=== PATIENT | male | born 1955 | race Caucasian/White ===

== ENCOUNTER 2020-04-03 06:44 | Outpatient (CLI) | payer MEDICARE, BC, OTHER ==
[2020-04-03 14:38] LABS: INR-International Normal Ratio 0.9; Prothrombin Time 12.4 sec (12.0-14.7)
[2020-04-03 14:48] LABS: Hemoglobin 15.4 g/dL (14.0-18.0); Mean Corpuscular HGB CONC 32.8 g/dL (32.0-36.0); Mean Corpuscular Hemoglobin 28.7 pg (27.0-31.0); Mean Corpuscular Volume 87.3 fL (78.0-98.0); Mean Platelet Volume 9.6 fL (7.4-10.4); Platelet Count 233 thou/uL (130-400); RBC Distribution Width 12.2 % (11.5-14.5); Red Blood Cell (RBC) Count 5.36 mill/uL (4.70-6.10); White Blood Cell (WBC) Count 8.3 thou/uL (4.8-10.8)
[2020-04-03 17:02] LABS: Anion Gap 21 mmol/L (10-20); BUN (Urea Nitrogen) 20 mg/dL (8.4-25.7); Calc. Creatinine Clearance 0 mL/min (70-130); Calcium 10.3 mg/dL (7.8-10.44); Carbon Dioxide 21 mmol/L (23-31); Chloride 103 mmol/L (98-107); Estimated GFR-MDRD 77; Glucose 102 mg/dL (80-115); Potassium 4.4 mmol/L (3.5-5.1); Sodium 141 mmol/L (136-145)
[2020-04-04 12:21] LABS: SARS-CoV-2 MS2 Positive; SARS-CoV-2 N Gene Negative; SARS-CoV-2 S Gene Negative; SARS-CoV-2 by NAA Not Detected (NotDetected); SARS-CoV-2 orf1ab Negative
== END 2020-04-03 06:45 | disposition home or self-care (01) ==
LOC: LABBT 06:44
PROVIDERS: ATTEND Urology
DX: Z01.818 Encounter for other preprocedural examination (principal); Z20.828 Contact with and (suspected) exposure to other viral communicable diseases; N20.0 Calculus of kidney
CPT/HCPCS: 80048; 85027; 85610; 85730; 93005; U0003; 87635; 93010

== ENCOUNTER 2020-04-08 07:42 | Day surgery (SDC) | payer MEDICARE, BC ==
[2020-04-03 11:45] VITALS: BMI 29.5
[2020-04-08] MEDS ORDERED: Levofloxacin 500 mg/D5W 100 ml Premix Bag ONE (08:01)
--- NOTE | 2020-04-08 08:39 | RAD ---
Exam: 1 view abdomen HISTORY: Preoperative exam. Patient scheduled for ureteral stent placement and cystoscopy. COMPARISON: None. FINDINGS: Nonspecific bowel gas pattern. Scattered fecal material in a nondistended, nondilated colon. Limited evaluation of the renal shadows and psoas shadows due to overlying bowel gas and fecal materi al. 1.4 cm calcification to the right of the L2 transverse process. Calcifications in the left and right hemipelvis are presumed to be phleboliths. The possibility of a 0.7 cm right ureteral calculus cannot be excluded. Intact bony pelvis. Rudimentary right rib at T12. Partial sacralization of L5. IMPRESSION: Calcifications in the right hemiabdomen and right hemipelvis as described above. Transcribed Date/Time: 04/08/2020 8:52 AM
[2020-04-08] MEDS ORDERED: Iothalamate Meglumine 60% 50 ML VIAL FS ONE (09:56)
[2020-04-08] MEDS ORDERED: Fentanyl 100 MCG/2 ML VIAL ONE ×2 (10:06→12:51)
[2020-04-08] MEDS ORDERED: PROPOFOL 200 MG/20 ML VIAL ONE (10:23)
[2020-04-08] MEDS ORDERED: Lidocaine 1% PF 5 ML VIAL ONE (10:23)
[2020-04-08] MEDS ORDERED: Ondansetron PF 4 MG/2 ML Vial ONE (10:23)
[2020-04-08] MEDS ORDERED: Oxybutynin 5 MG TAB ONE (12:51)
[2020-04-08] MEDS ORDERED: Phenazopyridine HCl 97.5 MG TABLET ONE ×2 (12:52)
[2020-04-08] MEDS ORDERED: Promethazine HCl 25 MG/ML VIAL ONE (12:55)
[2020-04-08] MEDS ORDERED: Tamsulosin HCl 0.4 MG CAP ONE (13:02)
--- NOTE | 2020-04-08 13:04 | RAD ---
Retrograde pyelogram: 04/08/2020 COMPARISON: None HISTORY: Stent placement FINDINGS: There was a 1.4 cm calcification on KUB performed 04/08/2020 adjacent to the right L3 transve rse process. That calcification is no longer visualized. Images demonstrate placement of a right double-J ureteral stent. There is a calcification adjacent to the distal curl which may be vascular i n nature. IMPRESSION: Placement of right double-J ureteral stent.
[2020-04-08] MEDS ORDERED: Morphine 4 MG/ML VIAL ONE (13:16)
[2020-04-08] MEDS ORDERED: HYDROcodone/Acetaminophen 5/325 mg Tablet ONE (14:13)
--- NOTE | 2020-04-09 14:11 | OP ---
DATE OF PROCEDURE: 04/08/2020 PRIMARY CARE PHYSICIAN: [facility]. PREOPERATIVE DIAGNOSES: 1. 64-year-old male with right renal pelvic stone measuring 1.5 x 1.4 x 1.3 cm. 2. Right punctate renal parenchymal calcific density. 3. Pelvic phleboliths, extra ureteral. 4. Benign prostatic hyperplasia. POSTOPERATIVE DIAGNOSES: 1. 64-year-old male with right renal pelvic stone measuring 1.5 x 1.4 x 1.3 cm. 2. Right punctate renal parenchymal calcific density. 3. Pelvic phleboliths, extra ureteral. 4. Benign prostatic hyperplasia. PROCEDURES PERFORMED: Cystoscopy, right retrograde pyelogram, 6 x 28 double-J ureteral stent placement with distal tail in situ, balloon dilatation of the distal ureter, flexible ureteroscopy, pyeloscopy, laser lithotripsy of large right renal calculi, basket extraction of stone fragments, retrograde pyelogram, modifier 22 for extended services due to large kidney stone. ANESTHESIA: LMA, general. COMPLICATIONS: None apparent. DISPOSITION: To recovery room in stable condition. INTRAOPERATIVE FINDINGS: 1. Bilobar hyperplasia of the prostate, [id number] obstruction with high median bar. 2. No median lobe. 3. Bladder demonstrates no evidence of bladder calculi. UO is in orthotopic position. 4. Large right renal pelvic stone spiculated, which migrated from renal pelvis to lower pole. INDICATIONS FOR PROCEDURE AND HISTORY: Mr. Buenrostro is a pleasant 64-year-old male, who presented to the emergency room as he has history of recurrent kidney stone, in which CT at [facility] demonstrated a large right renal pelvic stone measuring 1.5 cm with mild hydronephrosis. The patient presents today for ureteroscopy, laser lithotripsy. We have discussed extensively regarding options of ESWL versus PCNL versus ureteroscopy, laser lithotripsy. He has chosen to proceed with ureteroscopy, laser lithotripsy and has been fully informed regarding possible stage intervention given stone size, location, and density. All questions were answered to his satisfaction and he desired to proceed without reservation. Risks and complications of the procedure including, but not limited to: Bleeding, pain, infection, injury to adjacent organs, urosepsis, ureteral, renal, kidney injury, stricture formation was discussed with him in detail and all questions answered to his satisfaction. DESCRIPTION OF PROCEDURE: After an informed consent was signed, broad-spectrum antibiotics were provided. Bilateral NICK hose and SCDs were placed. The patient transported to the cystoscopy suite and anesthesia was administered. A 21- Welsh cystoscope was utilized for cystoscopy after he was placed in dorsal lithotomy position with a formal prep. His penile urethra was grossly unremarkable. Bilobar hyperplasia of the prostate was noted demonstrating [id number] obstruction with high median bar, however, no evidence of intravesical median lobe. UOs are about 4 or 5 mm proximal to the bladder neck. There was some bladder trabeculation. No bladder stones noted. No bladder tumor. At this time, an open-ended catheter was utilized to intubate the right UO and a retrograde pyelogram was performed. He has a large right pelvic phlebolith, which is extra ureteral. The stone was seen in the renal pelvis, and did migrate to his lower pole. The infundibular angle was about 45 degrees. At this time, with the wire placed into the right upper pole using a [employer] 15-Welsh 6-cm balloon dilator, we dilated the distal ureter uneventfully. After appropriate dilatation, a 10-Welsh dual-lumen access sheath was placed into the level of the renal pelvis. A second safety wire of 0.035 Super Stiff was then placed into the upper pole. At this time, a 12/14-Welsh navigator was placed over the Super Stiff wire. There was mild resistance, however, we were able to pass this to the level of the proximal ureter without difficulty. The inner sheath was removed and a ureteroscopy was performed with our disposable scope. A large stone spiculated was seen in the right lower pole. Using 273 ball-tip micron laser fiber at 1.2 to 1.5 joules, we laser lithotripsied the stone into multiple tiny fragments. The stone did fragment into tiny dust-like debris at the end of the procedure, mostly the stone fragments were dust-like caliber. I did extract some for chemical analysis. However, much of the stone debris was dustlike, therefore difficult to grab with a Zero Tip basket, he will most likely pass these as they are dust-like caliber. Survey of the ureter demonstrated no evidence of ureteral calculi of concern. The sheath was completely removed and a 6 x 28 double-J ureteral stent was passed without difficulty and all wire and sheath was removed intact, bladder completely emptied. He tolerated the procedure well and transported to the recovery room in stable condition. He is discharged with tramadol #30, ciprofloxacin for a course until followup, Flomax #30 one p.o. daily, Azo, Colace, Ditropan 5 mg one p.o. q.8 hours p.r.n. for bladder spasm. I have informed him to obtain a KUB one day prior to the appointment. If there is no gross stone debris concerning in the ureteral course, we will remove stent under local on the . As he does have component of BPH, I plan to continue his tamsulosin postprocedure. Job ID: [id number] [facility]
== END 2020-04-08 14:45 | disposition home or self-care (01) ==
LOC: SDC 07:42
PROVIDERS: ATTEND Urology
PROC: 0TC38ZZ Extirpation of Matter from Right Kidney Pelvis, Via Natural or Artificial Opening Endoscopic (ICD-10-PCS; principal; 2020-04-08)
PROC: 0T768DZ Dilation of Right Ureter with Intraluminal Device, Via Natural or Artificial Opening Endoscopic (ICD-10-PCS; 2020-04-08)
DX: N20.0 Calculus of kidney (principal); N40.1 Benign prostatic hyperplasia with lower urinary tract symptoms; N13.8 Other obstructive and reflux uropathy; R35.0 Frequency of micturition; I87.8 Other specified disorders of veins; N32.89 Other specified disorders of bladder; I10 Essential (primary) hypertension; E78.5 Hyperlipidemia, unspecified; G47.30 Sleep apnea, unspecified; Z79.899 Other long term (current) drug therapy; Z88.5 Allergy status to narcotic agent
CPT/HCPCS: 74018; 74420; 82365; 88300; J1956; J2270; J2405; J2550; J2704; J3010

== ENCOUNTER 2024-01-01 15:38 | Outpatient (CLI) | payer MEDICARE, OTHER ==
[2024-01-01 16:58] LABS: Bilirubin Neg (Negative); Blood, Urine Negative (Negative); Clarity Clear (Clear); Glucose, Urine (Dipstick) Normal (Negative); Ketone, Urine Negative (Negative); Leukocyte Negative (Negative); Nitrite Negative (Negative); Protein, Urine (Dipstick) Negative (Neg-Trace); Specific Gravity, Urine 1.015 (1.005-1.030); Urobilinogen Normal mg/dL (Less than 2)
[2024-01-01 17:00] LABS: Hematocrit 42.6 % (38.8-50.0); Hemoglobin 14.1 g/dL (13.5-17.5); Mean Corpuscular HGB CONC 33.1 g/dL (32.0-36.0); Mean Corpuscular Hemoglobin 27.5 pg (27.0-33.0); Mean Platelet Volume 10.4 fL (7.4-10.4); Platelet Count 214 10x3/uL (150-450); RBC Distribution Width 12.9 % (11.5-14.5); Red Blood Cell (RBC) Count 5.13 10x6/uL (4.32-5.72); White Blood Cell (WBC) Count 8.8 10x3/uL (3.5-10.5)
[2024-01-01 17:05] LABS: Bacteria/HPF Rare-Few HPF (None Seen); RBC/HPF 0-3 HPF (0-3); Squamous Epithelial 0-3 HPF (0-3); WBC/HPF 0-3 HPF (0-3)
[2024-01-01 17:33] LABS: PTT 28.7 sec (22.0-33.0)
[2024-01-01 17:38] LABS: Anion Gap 14 mmol/L (10-20); BUN (Urea Nitrogen) 24 mg/dL (8.4-25.7); Calc. Creatinine Clearance 0 mL/min (70-130); Calcium 9.9 mg/dL (7.8-10.44); Carbon Dioxide 26 mmol/L (23-31); Chloride 105 mmol/L (98-107); Estimated GFR 77; Glucose 116 mg/dL (80-115); Potassium 4.5 mmol/L (3.5-5.1); Sodium 140 mmol/L (136-145)
== END 2024-01-01 15:39 | disposition home or self-care (01) ==
LOC: LABBT 15:38
PROVIDERS: ATTEND Urology
DX: Z01.818 Encounter for other preprocedural examination (principal); Z12.5 Encounter for screening for malignant neoplasm of prostate; N20.0 Calculus of kidney; N40.1 Benign prostatic hyperplasia with lower urinary tract symptoms; N28.1 Cyst of kidney, acquired; N21.0 Calculus in bladder; I51.4 Myocarditis, unspecified; R35.0 Frequency of micturition; Z80.42 Family history of malignant neoplasm of prostate
CPT/HCPCS: 80048; 81001; 85027; 85610; 85730; 87086; 93005; 93010

== ENCOUNTER 2024-01-15 08:11 | Day surgery (SDC) | payer MEDICARE, OTHER ==
[2024-01-01 16:15] VITALS: BMI 29.8
[~2024-01-15 08:11] MED LIST: LevoFLOXacin D5W 500 mg (100 mL) BAG ONE
[2024-01-15] MEDS ORDERED: fentaNYL PF 100 MCG/2 ML SYRINGE ONE (08:51)
[2024-01-15] MEDS ORDERED: Dexamethasone 4 mg/ml Vial ONE (08:51)
[2024-01-15] MEDS ORDERED: Ondansetron PF 4 MG/2 ML Vial ONE (08:51)
[2024-01-15] MEDS ORDERED: Lidocaine 2% PF 5 ML VIAL ONE (08:51)
[2024-01-15] MEDS ORDERED: PROPOFOL 20 ML ONE (08:52)
[2024-01-15] MEDS ORDERED: Midazolam HCl 2 mg/2 ml Vial ONE (08:53)
[2024-01-15] MEDS ORDERED: Iopamidol 15 ML ONE (09:03)
[2024-01-15] MEDS ORDERED: Phenazopyridine HCl 100 MG TAB ONE (10:19)
[2024-01-15] MEDS ORDERED: Tamsulosin HCl 0.4 MG CAP ONE (10:20)
== END 2024-01-15 12:52 | disposition home or self-care (01) ==
LOC: SDC 08:11
PROVIDERS: ATTEND Urology
PROC: 0TCB8ZZ Extirpation of Matter from Bladder, Via Natural or Artificial Opening Endoscopic (ICD-10-PCS; principal; 2024-01-15)
DX: N40.1 Benign prostatic hyperplasia with lower urinary tract symptoms (principal); R35.0 Frequency of micturition; N28.1 Cyst of kidney, acquired; N21.0 Calculus in bladder; I51.4 Myocarditis, unspecified; N20.0 Calculus of kidney; E78.5 Hyperlipidemia, unspecified; I10 Essential (primary) hypertension; G47.30 Sleep apnea, unspecified; Z90.89 Acquired absence of other organs; Z98.890 Other specified postprocedural states; Z79.899 Other long term (current) drug therapy; Z88.5 Allergy status to narcotic agent; Z80.42 Family history of malignant neoplasm of prostate
CPT/HCPCS: 52317; 82365; J1100; J2001; J2250; J2405; J2704; Q9967; 88300; J1956